=== PATIENT | female | born 1995 | race Caucasian/White ===

== ENCOUNTER 2017-04-19 15:27 | Outpatient (CLI) | payer MEDICAID ==
[~2017-04-19] VITALS: Ht 152.4 cm; Wt 70.3 kg
[2017-04-19] MEDS ORDERED: CLOT45CR19 VAG (15:40)
[2017-04-19] MEDS ORDERED: PREN-93 PO (15:40)
[2017-04-19 15:41] VITALS: BP 107/55; RESP 18; Ht 152.4 cm; Wt 70.3 kg
--- NOTE | 2017-04-19 16:34 | RADRPT ---
PROCEDURE: US OB biophysical profile. Ultrasound cervix CLINICAL INDICATION: decreased movements, labor TECHNIQUE: Multiple sonographic images of the pelvis were obtained. In addition, transvaginal natanael ges of the cervix were obtained. The images were reviewed on a PACS workstation. COMPARISON: No prior studies are available for comparison. FINDINGS: There is a single viable intrauterine gestation. Cardiac activity is present with 166 beats per min sherry. There is a vertex presentation. The placenta is anterior. There is no evidence of placental abruption. There is a normal amount of amniotic fluid with an DAGOBERTO = 13.0 cm. The cervix measures 2.4 cm in length. Biophysical profile: movement 2/2 tone 2/2. breathing 2/2 DAGOBERTO 2/2 Total 02/22 RPTAT: AA . IMPRESSION: Normal biophysical profile. Cervix measures 2.4 cm in length. .Nicola Mahmood MD, MD Date Time Electronically viewed and signed by .Nicola Mahmood MD, on 04/19/2017 16:33 .S/
--- NOTE | 2017-04-19 17:36 | TRIAGE ---
OB Triage Datetime Report Generated by CPN: 04/19/2017 17:36 Datetime: 04/19/2017 17:30 Stage of : OB Triage Maternal Assessment Level of Consciousness: Fully Conscious Labor Evaluation Frequency: 2UC/HR Monitor Mode: External Duration (sec)2399: 50-70 Quality: Mild Resting Tone [place]: Relaxed Heart Rate FHR Baseline Rate: 145 Monitor Mode: External US Variability: Moderate 6-25 bpm Accelerations: 15X15 Decelerations: None Pain Assessment Pain Scale: 0 Pain Goal: 3 Vaginal Exam Vaginal Bleeding: None Datetime: 04/19/2017 16:30 Stage of : OB Triage Maternal Assessment Level of Consciousness: Fully Conscious Labor Evaluation Frequency: 1UC/HR Monitor Mode: External Duration (sec)2399: 60 Quality: Mild Resting Tone [place]: Relaxed Heart Rate FHR Baseline Rate: 145 Monitor Mode: External US Variability: Moderate 6-25 bpm Accelerations: 15X15 Decelerations: None Pain Assessment Pain Scale: 0 Pain Goal: 3 Vaginal Exam Vaginal Bleeding: None Datetime: 04/19/2017 15:36 Assessment Type: Triage Maternal Assessment Level of Consciousness: Fully Conscious DTR's/Clonus: DTRs 2+; No Clonus Headache: Denies Blurred Vision: No Respiratory Effort: Unlabored; Regular Rhythm; Equal Expansion Breath Sounds, Left: Clear and Equal Breath Sounds, Right: Clear and Equal Nausea/Vomiting: Denies RUQ Epigastric Pain: Denies Lower Extremities Edema: None Degree: None Upper Extremities Edema: None Degree: None Facial Edema: None Fall Risk Assessment History of Falling: (0) No Secondary Diagnosis: (0) No Ambulatory Aid: (0) Bedrest/Nurse Assist IV Therapy: (0) No Gait: (0) Normal/Bedrest/Immobile Mental Status: (0) Oriented to Own Ability Fall Score: 0 Fall Risk Score Definition: No Risk: No action required Datetime: 04/19/2017 15:33 Time of Arrival: 04/19/2017 15:20 EGA: 32.0 Arrived By: Ambulatory Arrived From: Home Chief Complaint: PT HERE C/O PAIN WITH WALKING AND LEAKING Movement: Present Contractions: Denies/Absent Rupture of Membranes: Unsure Vaginal Bleeding: None Vaginal Discharge: Present Recent Sexual Intercouse: Denies Abdominal Trauma: Not Applicable Patient Complaints: None Time Provider Notified: 04/19/2017 15:45 Provider Notified: KAIN Initial Plan: ROM PLUS, CVL, BPP Datetime: 04/19/2017 15:32 Monitor Mode: External Monitor Mode: External US
--- NOTE | 2017-04-19 19:02 | CONS ---
Date/Time of Note Date/Time of Note DATE: 04/19/17 TIME: 18:52 Consultation Date/Type/Reason Admit Date/Time April 19, 2017 This patient is a 22 years old 2 para 1 living 1 with estimated date of confinement of 06/14/2017 which makes her 32 weeks today. She came to triage complaining of a rupture of membranes and leaking of the fluid vaginally. She had a history of labor. She also is under treatment with clotrimazole due to vaginal yeast infection. On examination she is a well-developed well-nourished lady late in her general vital signs are normal with a blood pressure of 107/55 pulse rate of 87 respiration 18 temperature 98.5 oxygen saturation of 97 % in room temperature. Her ROM plus test was negative. Reason for Consultation Laboratory Tests Test 04/19/17 16:45 Membranes Rupture NEGATIVE Constitutional: No chills, No diaphoresis, No disoriented, No febrile, No improved, No no complaints, No other, No poor po, No requiring IVF, No requiring O2 Eyes: No discharge, No no complaints, No other, No pain, No redness, No visual change ENT: No bleeding, No congestion, No discharge, No dysphagia, No no complaints, No other, No pain, No sore throat Respiratory: No cough, No no complaints, No other, No pain, No pleuritic pain, No shortness of breath, No sputum, No wheezing Cardiovascular: No chest pain, No edema, No lightheadedness, No no complaints, No orthopenea, No other, No palpitations, No paroxysmal nocturnal dyspnea Gastrointestinal: No blood, No constipation, No decreased appetite, No diarrhea , No flatus, No nausea, No no complaints, No other, No pain, No passing stool, No vomiting Genitourinary: other (No true evidence of premature rupture of membranes and exam), No bleeding, No discharge, No dysuria, No flank pain, No hematuria, No no complaints Musculoskeletal: No back pain, No bone/joint pain, No neck pain, No no complaints, No other, No restricted range of motion, No swelling Skin: No bruising, No erythema, No laceration, No no complaints, No other, No pruritis, No rash, No skin lesions Neurologic: No confusion, No dizziness, No focal-weakness, No headache, No no complaints, No other, No seizure, No syncope Additional Comments We did an ultrasound study and the result was a single viable intrauterine gestation with cardiac activity of 1 66/min in vertex presentation placenta was anterior no evidence of abruption the amniotic fluid index was 13.0 cm the cervix was 2.4 cm in length. The biophysical profile was 8/8 Disposition; with these negative finding patient was reassured of the lack of rupture membrane. She will follow her care in the system specialist clinic. She is advised to return to triage area in case of labor vaginal bleeding or true rupture of membranes. Social History Smoking Status: Never smoker Exam/Review of Systems Vital Signs Vitals Vital Signs Date Time Temp Pulse Resp B/P Pulse Ox O2 Delivery O2 Flow Rate FiO2 04/19/17 15:41 98.5 18 107/55 97 Room Air Results Results 24 hrs Laboratory Tests Test 04/19/17 16:45 Membranes Rupture NEGATIVE PABLO MAYS MD Apr 19, 2017 19:02
== END 2017-04-19 17:43 | disposition home or self-care (01) ==
LOC: OBT 15:27 → L-D 15:29 → OBT 17:43
PROVIDERS: ATTEND Obstetrics & Gynecology
DX: O41.93X0 Disorder of amniotic fluid and membranes, unspecified, third trimester, not applicable or unspecified (principal); Z3A.32 32 weeks gestation of pregnancy
CPT/HCPCS: 76817; 76818; 84112; Z7500; G0463

== ENCOUNTER 2017-05-29 02:28 | Inpatient (IN) | payer MEDICAID ==
[~2017-05-29] VITALS: Ht 157.5 cm; Wt 71.8 kg
[~2017-05-29 02:28] MED LIST: CLOT45CR19 VAG; PREN-93 PO
[2017-05-29 02:58] VITALS: Ht 157.5 cm; Wt 71.8 kg
[2017-05-29 02:59] VITALS: BP 113/74; PULSE 90; RESP 18
[2017-05-29] MEDS ORDERED: LACTATED RINGER'S 1,000 ML IV PRN (03:25)
[2017-05-29] MEDS ORDERED: AMPICILLIN 2 GM/NS (PMX) 100 ML IV ONE (03:30)
[2017-05-29] MEDS ORDERED: IBUPROFEN 600 MG TAB PO PRN (03:30)
[2017-05-29] MEDS ORDERED: METHYLERGONOVINE 0.2 MG INJ IM PRN ×2 (03:30→13:00)
[2017-05-29] MEDS ORDERED: HYDROCODONE/APAP (5/325) TAB PO PRN (03:30)
[2017-05-29] MEDS ORDERED: MISOPROSTOL 200 MCG TAB PR PRN ×2 (03:30→13:00)
[2017-05-29] MEDS ORDERED: BUTORPHANOL 2 MG INJ IV PRN ×2 (03:30)
[2017-05-29] MEDS ORDERED: LIDOCAINE 1% (MPF) 30 ML INJ INJ PRN (03:30)
[2017-05-29] MEDS ORDERED: OXYTOCIN 30 UNITS/LR 500 ML IV PRN ×2 (03:30→13:00)
[2017-05-29] MEDS ORDERED: CARBOPROST 250 MCG INJ IM PRN ×2 (03:30→13:00)
[2017-05-29] MEDS ORDERED: OXYTOCIN 30 UNITS/LR 500 ML IV SCH ×3 (03:30)
[2017-05-29] MEDS: LACTATED RINGER'S 1,000 ML IV SCH ×2 (04:05→06:16)
[2017-05-29 05:20] LABS: BASOPHILS % 0.4 % (0.0-2.0); EOSINOPHILS # 0.3 10^3/ul (0.0-0.5); EOSINOPHILS % 3.4 % (0.0-7.0); HEMATOCRIT 39.3 % (37.0-47.0); HEMOGLOBIN 13.1 g/dl (12.0-16.0); LYMPHOCYTES % 12.2 % (15.0-51.0); MEAN CORPUSCULAR HEMOGLOBIN 30.3 pg (29.0-33.0); MEAN CORPUSCULAR HGB CONC 33.3 g/dl (32.0-37.0); MEAN CORPUSCULAR VOLUME 90.8 fl (82.0-101.0); MEAN PLATELET VOLUME 12.3 fl (7.4-10.4); MONOCYTE # 0.6 10^3/ul (0.3-0.9); NEUTROPHIL # 6.3 10^3/ul (1.6-7.5); NEUTROPHILS % 76.5 % (39.0-77.0); PLATELET COUNT 152 10^3/UL (140-415); RED BLOOD COUNT 4.33 10^6/ul (4.20-5.40); RED CELL DISTRIBUTION WIDTH 12.9 % (11.5-14.5); WHITE BLOOD COUNT 8.3 10^3/ul (4.8-10.8)
[2017-05-29 05:37] LABS: INR 0.91; PROTIME 12.3 Sec (12.2-14.2)
[2017-05-29 05:38] LABS: PARTIAL THROMBOPLASTIN TIME 32.4 Sec (25.0-35.0)
[2017-05-29 05:47] LABS: ALANINE AMINOTRANSFERASE 27 IU/L (13-69); ALBUMIN 3.1 g/dl (3.3-4.9); ALBUMIN/GLOBULIN RATIO 1.06; ALKALINE PHOSPHATASE 167 IU/L (42-121); ANION GAP 14 (8-16); ASPARTATE AMINO TRANSFERASE 23 IU/L (15-46); BILIRUBIN,INDIRECT 0.3 mg/dl (0-1.1); BILIRUBIN,TOTAL 0.3 mg/dl (0.2-1.3); BLOOD UREA NITROGEN 8 mg/dl (7-20); CALCIUM 8.8 mg/dl (8.4-10.2); CARBON DIOXIDE 20 mmol/L (21-31); CHLORIDE 110 mmol/L (97-110); CREATININE 0.53 mg/dl (0.44-1.00); GLUCOSE 86 mg/dl (70-220); SODIUM 140 mmol/L (135-144)
--- NOTE | 2017-05-29 06:23 | RADRPT ---
PROCEDURE: ULTRASOUND OBSTETRICAL CLINICAL INDICATION: 22-year-old female with contractions for size and date determination . TECHNIQUE: Multiple sonographic images of the pelvis were obtained. The images were reviewed on a PACS workstation. COMPARISON: No prior studies are available for comparison. FINDINGS: The cervix is not well visualized. There is a single viable intrauterine gestation. Cardiac activit y is present with 157 beats per minute. There is a vertex presentation. Measurements were made in or andres to determine age. The results are as follows: BPD = 8.88 cm, HC = 31.47 cm, AC = 33.87 cm, FL = 6.96 cm. This yields and estimated gestational ag e of approximately 36 weeks 1 day. The estimated date of delivery is June 25, 2017. The EFW = 3 032 +/- 455 g (6 lb 11 oz). The GP is 29%. The placenta is anterior. There is no evidence for an abruption or placenta previa. There is a decreased amount of amniotic fluid with an DAGOBERTO = 3.5 cm. IMPRESSION: 1. Single viable intrauterine gestation of approximately 36 weeks 1 day with vertex presentation. The estimated date of delivery is June 25, 2017. 2. The estimated weight is 3032 +/- 455 g (6 lb 11 oz). The GP is 29%. 3. Oligohydramnios with amniotic fluid index of 3.5 cm. .Sterling Go MD, MD Date Time Electronically viewed and signed by .Sterling Go MD, MD on 05/29/2017 06:23 .M/
--- NOTE | 2017-05-29 06:29 | TRIAGE ---
OB Triage Datetime Report Generated by CPN: 05/29/2017 06:29 Datetime: 05/29/2017 04:30 Labor Evaluation Frequency: IRREGULAR Monitor Mode: External Duration (sec)2399: 60 Quality: Mild Pattern: Normal: <= 5 Contractions in 10 Minutes Resting Tone [place]: Relaxed Heart Rate FHR Baseline Rate: 155 Monitor Mode: External US FHR Baseline Changes: No Baseline Change Variability: Moderate 6-25 bpm Accelerations: 15X15 Decelerations: None Category: Category I Datetime: 05/29/2017 03:30 Labor Evaluation Frequency: IRREGULAR Monitor Mode: External Duration (sec)2399: 60 Quality: Mild Pattern: Normal: <= 5 Contractions in 10 Minutes Resting Tone [place]: Relaxed Heart Rate FHR Baseline Rate: 145 Monitor Mode: External US FHR Baseline Changes: No Baseline Change Variability: Moderate 6-25 bpm Accelerations: 15X15 Decelerations: None Category: Category I Datetime: 05/29/2017 03:11 Vaginal Exam Dilatation (cms): 2.0 Effacement (%): 30 Station: -3 Exam By: Farida KAUR RN Membrane Status: Ruptured Membranes Ruptured Date/Time: 05/29/2017 01:00 Membranes Rupture Method: Spontaneous Amniotic Fluid Color: Clear Amniotic Fluid Amount: Small Amniotic Fluid Odor: None Vaginal Bleeding: None Pool: Positive Nitrazine: Positive Cervix, Consistency: Firm Cervix, Position: Posterior Datetime: 05/29/2017 02:46 Stage of : OB Triage Time of Arrival: 05/29/2017 02:30 EGA: 37.5 Arrived By: Wheelchair Arrived From: Home Chief Complaint: SROM @0100 Movement: Present Contractions: Irregular Time Contractions Began: 05/29/2017 01:00 Rupture of Membranes: Ruptured Vaginal Bleeding: None Vaginal Discharge: Present Recent Sexual Intercouse: Denies Abdominal Trauma: Not Applicable Patient Complaints: None Time Provider Notified: 05/29/2017 03:17 Provider Notified: deana Initial Plan: CALL ROCKY RUIZ Maternal Assessment Level of Consciousness: Fully Conscious DTR's/Clonus: DTRs 2+; No Clonus Headache: Denies Blurred Vision: No Respiratory Effort: Unlabored; Regular Rhythm; Equal Expansion Breath Sounds, Left: Clear and Equal Breath Sounds, Right: Clear and Equal Nausea/Vomiting: Denies RUQ Epigastric Pain: Denies Lower Extremities Edema: None Degree: None Upper Extremities Edema: None Degree: None Facial Edema: None Temperature Route: Oral Fall Risk Assessment History of Falling: (0) No Secondary Diagnosis: (0) No Ambulatory Aid: (0) Bedrest/Nurse Assist IV Therapy: (0) No Gait: (0) Normal/Bedrest/Immobile Mental Status: (0) Oriented to Own Ability Fall Score: 0 Fall Risk Score Definition: No Risk: No action required Monitor Mode: External Monitor Mode: External US Pain Assessment Pain Presence: Intermittent Pain Type: Contraction Pain Location: Abdomen; Back Datetime: 04/19/2017 15:36 Fall Score: 0 Fall Risk Score Definition: No Risk: No action required Datetime: 04/19/2017 15:33 EGA: 32.0
[2017-05-29] MEDS: AMPICILLIN 1 GM/NS (PMX) 50 ML IV SCH ×2 (08:58→11:30)
--- NOTE | 2017-05-29 11:09 | HP ---
Date/Time of Note Date/Time of Note DATE: 05/29/17 TIME: 11:08 OB - History Hx of Present Free Text/Dictation @37+wks GA in labor : 1 Para: 0 Care: Good Care Ultrasounds: Normal mid trimester US Obstetrical Complications: None Medical Complications: None Past Family/Social History * Past Medical, Surgical, Family and Obstetric Histories reviewed from chart. OB Admission Exam Vital Signs Vital Signs Vital Signs Date Time Temp Pulse Resp B/P Pulse Ox O2 Delivery O2 Flow Rate FiO2 05/29/17 02:59 98.4 90 18 113/74 Room Air Physical Exam Cervical Dilatation: 2cm Effacement: 75% Station: -1 Membranes: Ruptured Amniotic Fluid: Clear Heart Rate: 140's Accelerations: Accelerations Present Decelerations: No Decelerations Varibility: Moderate Contractions on Admission: 6-10 Minutes Apart Last 72 hours Lab Results CBC & BMP 05/29/17 04:05 Liver Function Test 05/29/17 04:05 Alanine Aminotransferase (ALT/SGPT) 27 Albumin 3.1 L Alkaline Phosphatase 167 H Aspartate Amino Transf (AST/SGOT) 23 Direct Bilirubin 0.00 Total Protein 6.0 L OB Assessment/Plan Reason for admission: observation Plan: Expectant Management Induction Method: per Pitocin Protocol GENTRY FINNEGAN M.D. May 29, 2017 11:09
--- NOTE | 2017-05-29 11:10 | LDN ---
Date/Time of Note Date/Time of Note DATE: 05/29/17 TIME: 11:09 Delivery Summary Weeks of Gestation 37+ Placenta Delivered: Spontaneously Meconium: none Anesthesia type: Epidural Sponge & Needle done & correct: Yes All needle counts correct: Yes Problems: Infant Delivery Information Apgars 1 Minute: 9 5 Minute: 9 Suctioning Nose & mouth suctioned at fannie: Yes Delee suction performed: Yes Umbilical Cord Umbilical cord with: 3 Vessels Cord Blood was obtained: Yes Mother & Baby Disposition Disposition Mom & Baby to Maternity; Good: Yes Mom transferred to: Other Baby to NICU: GENTRY Leger M.D. May 29, 2017 11:10
[2017-05-29 12:45] VITALS: BP 112/55; PULSE 77; RESP 18
[2017-05-29] MEDS ORDERED: LACTATED RINGER'S 1,000 ML IV* SCH (12:55)
[2017-05-29] MEDS ORDERED: SENNA/DOCUSATE NA (8.6MG/50MG) TAB PO PRN (13:00)
[2017-05-29] MEDS ORDERED: OXYCODONE/ASPIRIN (4.88/325) TAB PO PRN (13:00)
[2017-05-29] MEDS ORDERED: ZOLPIDEM 5 MG TAB PO PRN (13:00)
[2017-05-29] MEDS ORDERED: LANOLIN 7 GM TUBE TOP PRN (13:00)
[2017-05-29] MEDS: IBUPROFEN 600 MG TAB PO SCH (17:22)
[2017-05-29 17:48] VITALS: BP 112/56; PULSE 74; RESP 18
[2017-05-29 19:45] VITALS: BP 112/68; PULSE 64; RESP 18
[2017-05-29] MEDS: SENNA/DOCUSATE NA (8.6MG/50MG) TAB PO SCH (21:00)
[2017-05-30 04:00] VITALS: BP 110/65; PULSE 60; RESP 18
[2017-05-30] MEDS: IBUPROFEN 600 MG TAB PO SCH ×5 (05:36→23:57)
[2017-05-30 08:40] VITALS: BP 101/60; PULSE 74; RESP 14
[2017-05-30] MEDS: SENNA/DOCUSATE NA (8.6MG/50MG) TAB PO SCH ×2 (09:00→21:00)
[2017-05-30 10:30] LABS: BASOPHIL # 0.1 10^3/ul (0.0-0.1); BASOPHILS % 0.6 % (0.0-2.0); EOSINOPHILS # 0.2 10^3/ul (0.0-0.5); EOSINOPHILS % 2.2 % (0.0-7.0); HEMATOCRIT 39.9 % (37.0-47.0); HEMOGLOBIN 13.1 g/dl (12.0-16.0); LYMPHOCYTES # 1.3 10^3/ul (0.8-2.9); LYMPHOCYTES % 15.5 % (15.0-51.0); MEAN CORPUSCULAR HGB CONC 32.8 g/dl (32.0-37.0); MEAN CORPUSCULAR VOLUME 91.3 fl (82.0-101.0); MEAN PLATELET VOLUME 11.3 fl (7.4-10.4); MONOCYTE # 0.5 10^3/ul (0.3-0.9); MONOCYTES % 6.1 % (0.0-11.0); NEUTROPHIL # 6.2 10^3/ul (1.6-7.5); NEUTROPHILS % 75.2 % (39.0-77.0); PLATELET COUNT 173 10^3/UL (140-415); RED BLOOD COUNT 4.37 10^6/ul (4.20-5.40); RED CELL DISTRIBUTION WIDTH 12.9 % (11.5-14.5); WHITE BLOOD COUNT 8.3 10^3/ul (4.8-10.8)
[2017-05-30] MEDS ORDERED: GUAIFENESIN/DM 5ML CUP PO PRN (13:30)
[2017-05-30 16:49] VITALS: BP 108/66; PULSE 80; RESP 16
[2017-05-30 19:55] VITALS: BP 99/76; PULSE 82; RESP 18
[2017-05-31 04:10] VITALS: BP 98/75; PULSE 75; RESP 18
[2017-05-31] MEDS: IBUPROFEN 600 MG TAB PO SCH ×2 (06:01→11:16)
--- NOTE | 2017-05-31 06:55 | QN ---
Documentation Comment Late Entry Note: 05/30/17 PPD#1 is stable afebrile tolerates Diet No VB +BM +voids VS stable Gen NAD Abd soft NT ND Genitalai No blood at perinium --->discharge plan GENTRY FINNEGAN M.D. May 31, 2017 06:55
--- NOTE | 2017-05-31 06:56 | DS ---
Date/Time of Note Date/Time of Note DATE: 05/31/17 TIME: 06:56 Discharge Summary Admission/Discharge Info Admit Date/Time May 29, 2017 at 03:31 Discharge Date/Time May Discharge Diagnosis Patient Condition: Good Hospital Course uneventful Home Meds Reported Medications Clotrimazole* (Clotrimazole-7*) Vaginal Cream..g., 1 APPLIC VAG HS for 3 Days, EA 04/19/17 Vit No.124/Iron/FA ( Vitamin Tablet) 1 Each Tablet, 1 EACH PO DAILY, TAB 04/19/17 Primary Care Provider Therese Ortez Pending Labs Laboratory Tests Test 05/30/17 10:19 White Blood Count 8.310^3/ul (4.8-10.8) Red Blood Count 4.3710^6/ul (4.20-5.40) Hemoglobin 13.1g/dl (12.0-16.0) Hematocrit 39.9% (37.0-47.0) Mean Corpuscular Volume 91.3fl (82.0-101.0) Mean Corpuscular Hemoglobin 30.0pg (29.0-33.0) Mean Corpuscular Hemoglobin Concent 32.8g/dl (32.0-37.0) Red Cell Distribution Width 12.9% (11.5-14.5) Platelet Count 58735^3/UL (140-415) Mean Platelet Volume 11.3fl (7.4-10.4) Neutrophils % 75.2% (39.0-77.0) Lymphocytes % 15.5% (15.0-51.0) Monocytes % 6.1% (0.0-11.0) Eosinophils % 2.2% (0.0-7.0) Basophils % 0.6% (0.0-2.0) Nucleated Red Blood Cells % 0.0/100WBC (0.0-0.0) Neutrophils # 6.210^3/ul (1.6-7.5) Lymphocytes # 1.310^3/ul (0.8-2.9) Monocytes # 0.510^3/ul (0.3-0.9) Eosinophils # 0.210^3/ul (0.0-0.5) Basophils # 0.110^3/ul (0.0-0.1) Nucleated Red Blood Cells # 0.010^3/ul (0.0-0.0) GENTRY FINNEGAN M.D. May 31, 2017 06:56
[2017-05-31 07:33] VITALS: BP 104/69; PULSE 77; RESP 18
[2017-05-31] MEDS: SENNA/DOCUSATE NA (8.6MG/50MG) TAB PO SCH (08:44)
[2017-05-31] MEDS ORDERED: DIPHTH/TET/ACEL PERTUSS (ADULT) 0.5 ML VIAL IM* ONE (09:00)
== END 2017-05-31 15:40 | disposition home or self-care (01) | DRG 775 ==
LOC: OBT 02:28 → L-D 02:30 → OBT 03:30 → L-D 03:31 → PP1 12:50
PROVIDERS: ADMIT Obstetrics & Gynecology; ATTEND Obstetrics & Gynecology
PROC: 10E0XZZ Delivery of Products of Conception, External Approach (ICD-10-PCS; principal; 2017-05-29)
PROC: 4A1HXCZ Monitoring of Products of Conception, Cardiac Rate, External Approach (ICD-10-PCS; 2017-05-29)
PROC: 3E0234Z Introduction of Serum, Toxoid and Vaccine into Muscle, Percutaneous Approach (ICD-10-PCS; 2017-05-31)
DX: O80 Encounter for full-term uncomplicated delivery (principal); Z23 Encounter for immunization; Z37.0 Single live birth; Z3A.37 37 weeks gestation of pregnancy
CPT/HCPCS: 36415; 76815; 80053; 85025; 85610; 85730; 86592; 86900; 86901; 87340; 90715; 96360; G0463; J0290; J2590; J7120

== ENCOUNTER 2018-08-19 13:07 | Emergency (ER) | payer MEDICAID ==
[~2018-08-19] VITALS: Ht 157.5 cm; Wt 60.2 kg
[2018-08-19 13:16] VITALS: BP 126/74; PULSE 82; RESP 18; Ht 157.5 cm; Wt 60.2 kg
[2018-08-19] MEDS ORDERED: KETOROLAC 30 MG INJ IV STA (13:38)
[2018-08-19] MEDS ORDERED: METOCLOPRAMIDE 10 MG INJ IV ONE (14:00)
[2018-08-19] MEDS ORDERED: IBUPROFEN 600 MG TAB PO ONE (14:00)
[2018-08-19] MEDS ORDERED: SOD CHLORIDE 0.9% 1,000 ML IV ONE (14:00)
[2018-08-19] MEDS ORDERED: DIPHENHYDRAMINE 50 MG INJ IV ONE (14:00)
--- NOTE | 2018-08-19 14:14 | ERD ---
ER Documentation Chief Complaint Chief Complaint SMITH X1WK, dizziness if bending over HPI Patient is a 23-year-old female with no significant past medical history presenting to the emergency department complaining of occipital headache for the past 1 week. Symptoms come and go. Current pain level is currently 9/10 in severity. She describes a sharp sensation. Pain is worse when bending over. Additionally, the patient reports dizziness upon waking in the morning. She also reports some mild vaginal itching. She took Tylenol without significant relief. She denies any fevers, chills, neck stiffness, photosensitivity, or other symptoms at this time. ROS All systems reviewed and are negative except as per history of present illness. Medications Home Meds Active Scripts Fluconazole* (Diflucan*) 150 Mg Tablet, 150 MG PO ONCE, #1 TAB Prov:DAMIR GUERRA PA-C 08/19/18 Naproxen* (Naprosyn*) 500 Mg Tablet, 500 MG PO BID PRN for PAIN AND/OR INFLAMMATION, #30 TAB Prov:DAMIR GUERRA PA-C 08/19/18 Allergies Allergies: Coded Allergies: No Known Allergy (Unverified , 05/29/17) PMhx/Soc Medical and Surgical Hx: pt denies Medical Hx, pt denies Surgical Hx History of Surgery: No Anesthesia Reaction: No Hx Neurological Disorder: No Hx Respiratory Disorders: No Hx Cardiac Disorders: No Hx Psychiatric Problems: No Hx Miscellaneous Medical Probl: No Hx Alcohol Use: No Hx Substance Use: No Hx Tobacco Use: No Smoking Status: Never smoker FmHx Family History: No diabetes Physical Exam Vitals Vital Signs Date Temp Pulse Resp B/P (MAP) Pulse Ox O2 O2 Flow FiO2 Time Delivery Rate 08/19/18 98.0 82 18 126/74 100 13:16 (91) Physical Exam Const: No acute distress Head: Atraumatic Eyes: Normal Conjunctiva ENT: Normal External Ears, Nose and Mouth. Neck: Full range of motion. No meningismus. Resp: Clear to auscultation bilaterally Cardio: Regular rate and rhythm, no murmurs Skin: No petechiae or rashes Back: No midline or flank tenderness Ext: No cyanosis, or edema Neur: Awake and alert. No neurological deficits. Psych: Normal Mood and Affect Results 24 hrs Laboratory Tests Test 08/19/18 13:56 08/19/18 13:58 Bedside Urine pH (LAB) 7.0 Bedside Urine Protein (LAB) Negative Bedside Urine Glucose (UA) Negative Bedside Urine Ketones (LAB) Negative Bedside Urine Blood Negative Bedside Urine Nitrite (LAB) Negative Bedside Urine Leukocyte Esterase (L Negative POC Beta HCG, Qualitative NEGATIVE Current Medications Medications Dose Sig/Hugo Start Time Status Last (Trade) Ordered Route PRN Stop Time Admin Dose Reason Admin Ketorolac 30 mg ONCE STAT 08/19/18 DC Tromethamine IV 13:38 08/19/18 (Toradol) 13:40 50 mg ONCE ONCE 08/19/18 DC Diphenhydrami IV 14:00 08/19/18 ne HCl 14:00 (Benadryl) 10 mg ONCE ONCE 08/19/18 DC Metoclopramid IV 14:00 08/19/18 e HCl 14:00 (Reglan) Sodium 1,000 ml @ Q1H ONCE 08/19/18 DC Chloride 1,000 mls/hr IV 14:00 08/19/18 14:00 Ibuprofen 600 mg ONCE ONCE 08/19/18 DC 08/19/18 (Motrin) PO 14:00 08/19/18 13:53 14:01 [place] [address] Radiology Main Line: [phone] DIAGNOSTIC IMAGING REPORT Patient: NICOLA BURTON : 1995 Age: 23 Sex: F MR #: [id number] DOS: 08/19/18 0000 Ordering MD: DAMIR GUERRA PA-C [facility] Room/Bed: PROCEDURE: CT Brain without contrast. CLINICAL INDICATION: 23-year-old female. Headache. TECHNIQUE: A CT of the brain was performed on a multi-slice CT scanner utilizing axial imaging from the skull base through the vertex without IV contrast. Multiplanar reformatted images were made. Images were reviewed on a PACS workstation. One or more the following dose reduction techniques were utilized: Automated exposure control, adjustment of mA/ or kV according to patient's size, or use of iterative reconstruction technique. DICOM images are available for review. The CTDIvol is 39.64 mGy and the DLP is 634.23 mGycm. COMPARISON: None FINDINGS: No mass effect or midline shift. Normal ventricles for age. No acute intra-axial or extra-axial hemorrhage. No subdural collection. Garrido - white matter differentiation is maintained. Visualized paranasal sinuses are clear. Mastoid air cells are clear. IMPRESSION: Negative noncontrast CT brain RPTAT: HLRS Physician Lena Date Time Electronically viewed and signed by José Miguel Brownlee Physician on 08/19/2018 14:38 RS/ CC: DAMIR GUERRA PA-C [phone] Procedures/MDM Patient is a 23-year-old female presenting to the emergency department with complaints of headache and some mild vaginal itching. I suspect vaginitis, likely fungal etiology. Patient will be treated as an outpatient With a prescription for Diflucan. Differential diagnoses for headache include meningitis, intracranial hemorrhage, subarachnoid hemorrhage, CVA, TIA, tension headache, migraine, cluster headache, and others. I doubt any life threatening etiology at this time. CT scan of the head was unremarkable. Patient improved in the department after treatment with ibuprofen. Pt is to follow-up with primary care physician and return here immediately for any new or worsening symptoms. Departure Diagnosis: Primary Impression: Headache Headache type: unspecified Headache chronicity pattern: acute headache Intractability: not intractable Qualified Codes: R51 - Headache Additional Impression: Vaginitis Condition: Fair Patient Instructions: Self-Care for Headaches Additional Instructions: Muchas josé miguel por [facility] para jarrett servicio. Esperamos que en jarrett visita a la naye de emergencia jarrett problema medico haya sido solucionado y que se sienta mucho mejor. Para estar seguros que jarrett mejoria sigue en proceso, le pedimos el favor de hacer shruti brady de seguimiento medico con jarrett doctor primario en los proximos 2-4 srinivasan. Lleve con usted estos documentos y las medicinas recetadas. Si roscoe sintomas empeoran, NO SE ESPERE, por favor regrese a naye de emergencia INMEDIATAMENTE. En olaf que usted no tenga un mdico de atencin primaria: Llame al mdico o clnica comunitaria de referencia que aparece abajo ruben las horas de consultorio para hacer shruti brady para que le vean. CLINICAS: [facility] [phone] [facility] [phone] [facility] [phone] [facility] [phone] [facility] [phone] [address] [facility]. [phone] DAMIR RODRIGUEZ PA-C Aug 19, 2018 14:14
[2018-08-19] MEDS ORDERED: FLUC150T PO (14:58)
[2018-08-19] MEDS ORDERED: NAPR-985 PO (14:58)
== END 2018-08-19 15:05 | disposition home or self-care (01) ==
LOC: FTE 13:07
DX: N76.0 Acute vaginitis (principal)
CPT/HCPCS: 70450; 81003; 81025; Z7502; Z7610; J7030

== ENCOUNTER 2019-04-11 18:39 | Emergency (ER) | payer BC, MEDICAID ==
[~2019-04-11] VITALS: Ht 154.9 cm; Wt 62.8 kg
[~2019-04-11 18:39] MED LIST changes: -CLOT45CR19 VAG; +CYCL10TA7 PO; +FLUC150T PO; +NAPR-985 PO; -PREN-93 PO
[2019-04-11 18:50] VITALS: Ht 154.9 cm; Wt 62.8 kg
[2019-04-11] MEDS ORDERED: KETOROLAC 30 MG INJ IM STA (19:56)
[2019-04-11] MEDS ORDERED: HYDROCODONE/APAP (10/325) TAB PO ONE (20:30)
[2019-04-11 20:50] VITALS: BP 117/81; PULSE 75; RESP 20
== END 2019-04-11 20:55 | disposition home or self-care (01) ==
LOC: FTE 18:39
DX: M62.838 Other muscle spasm (principal)
CPT/HCPCS: 81003; 81025; 96372; J1885; Z7502; Z7610